=== PATIENT | male | born 1935 | race Caucasian/White ===

== ENCOUNTER 2017-04-14 11:45 | Emergency (ER) | payer MEDICARE ==
[~2017-04-14] VITALS: Ht 177.8 cm; Wt 103.0 kg
[~2017-04-14 11:45] MED LIST: ATEN-102 PO; CALA120T PO; COUM4TAB7 PO; DIGO0.12 PO; LAMO100 PO; OMEP20TA39 PO; TAMS0.4C67 PO; ZOCO40TA PO
[2017-04-14 11:51] VITALS: BP 143/67; PULSE 86; RESP 18; TEMP 98.2; O2SAT 95
[2017-04-14] MEDS ORDERED: WARF-20 PO (12:05)
[2017-04-14] MEDS ORDERED: TAMS0.4C4 PO (12:06)
[2017-04-14] MEDS ORDERED: VITA250T3 PO (12:06)
[2017-04-14] MEDS ORDERED: LANO0.12 PO (12:06)
[2017-04-14] MEDS ORDERED: LAMO100 PO (12:06)
[2017-04-14] MEDS ORDERED: ATEN50TA PO (12:06)
[2017-04-14] MEDS ORDERED: SIMV40TA PO (12:06)
[2017-04-14] MEDS ORDERED: CHOL1TAB42 PO (12:06)
[2017-04-14] MEDS ORDERED: VERA120T3 PO (12:06)
[2017-04-14] MEDS ORDERED: OMEP20TA93 PO (12:06)
--- NOTE | 2017-04-14 12:17 | PD ---
HPI Chief Complaint: Musculoskeletal Complaint Time Seen by Provider: 12:12 Travel History International Travel<30 days: No Contact w/Intl Traveler<30days: No Traveled to known affect area: No History of Present Illness HPI 81-year-old male here with right knee pain. He has a history of CVA with residual left-sided weakness. He reports that he was getting out of bed 3 days ago when he fell and twisted his right knee. He reports that it was a mechanical fall. He has had pain and swelling in his right knee since then. Pain is worse with ambulation, flexion. He has been applying ice but symptoms persist. He denies any other injuries and he has no other complaints at this time. PFSH Past Medical History Hx Anticoagulant Therapy: Yes Arthritis: No Asthma: No Atrial Fibrillation: Yes Blood Disorders: No Anxiety: No Depression: No Heart Rhythm Problems: No Cancer: Yes (BASAL AND MELANOMA) Cardiac Catheterization: Yes Cardiovascular Problems: Yes High Cholesterol: No Chemotherapy: No Chest Pain: No Congestive Heart Failure: No COPD: No Cerebrovascular Accident: Yes Diminished Hearing: No Endocrine: No Glaucoma: No Genitourinary: No Headaches: No Hypertension: Yes Immune Disorder: No Musculoskeletal: No Neurologic: Yes Psychiatric: No Reproductive: No Respiratory: Yes Immunizations Current: Yes Migraines: No Myocardial Infarction: No Radiation Therapy: No Seizures: Yes (/2WEEKS / 6-7 SEI) Sleep Apnea: Yes Tetanus Vaccination: Unknown Influenza Vaccination: No Past Surgical History Abdominal Surgery: Yes (hernia) AICD: No Arteriovenous Shunt: No Cardiac Surgery: No Ear Surgery: No Endocrine Surgery: No Eye Surgery: No Genitourinary Surgery: No Gynecologic Surgery: No Insulin Pump: No Joint Replacement: No Oral Surgery: No Pacemaker: No Thoracic Surgery: No Other Surgery: Yes (ANALI INGUINAL HERNIA, HEMRHOIDECTOMY) Social History Alcohol Use: No Tobacco Use: No Substance Use: No Allergies-Medications (Allergen,Severity, Reaction): Coded Allergies: No Known Allergies (Verified Adverse Reaction, Unknown, 04/14/17) Reported Meds & Prescriptions Reported Meds & Active Scripts Active Walker with Front Wheels (Device) 1 Mis Mis Ea .XX DIRECTED Reported Vitamin C (Ascorbic Acid) 250 Mg Tab 1,000 Mg PO DAILY Vitamin D-3 (Cholecalciferol) 2,000 Unit Tab 1 Tab PO DAILY Simvastatin 40 Mg Tab 40 Mg PO HS Tamsulosin (Tamsulosin HCl) 0.4 Mg Cap 0.4 Mg PO HS Omeprazole 20 Mg Tab 20 Mg PO DAILY Lanoxin (Digoxin) 125 Mcg Tablet 1 Tab PO DAILY Verapamil (Verapamil HCl) 120 Mg Tab 120 Mg PO DAILY Lamictal (Lamotrigine) 100 Mg Tab 100 Mg PO BID Atenolol 50 Mg Tab 50 Mg PO DAILY Warfarin 4 Mg Tab 4 Mg PO DAILY Review of Systems Except as stated in HPI: all other systems reviewed are Neg Physical Exam Narrative GENERAL: Well-nourished male in no acute distress SKIN: Warm and dry. HEAD: Atraumatic. Normocephalic. EYES: Pupils equal and round. No scleral icterus. No injection or drainage. ENT: No nasal bleeding or discharge. Mucous membranes pink and moist. NECK: Trachea midline. No JVD. CARDIOVASCULAR: Regular rate and rhythm. No murmur appreciated. RESPIRATORY: No accessory muscle use. Clear to auscultation. Breath sounds equal bilaterally. MUSCULOSKELETAL: Right knee effusion. Flexion is slightly limited in the right knee. There is pain with flexion and extension of the right knee. Generalized tenderness to palpation the right knee. Minor abrasion to the right elbow. NEUROLOGICAL: Awake and alert. No obvious cranial nerve deficits. Motor grossly within normal limits. Normal speech. Data Data Last Documented VS Vital Signs Date Time Temp Pulse Resp B/P (MAP) Pulse Ox O2 Delivery O2 Flow Rate FiO2 04/14/17 11:51 98.2 86 18 143/67 (92) 95 Orders Orders Knee, Complete (4vws) (04/14/17 ) Ed Discharge Order (04/14/17 13:13) MDM Medical Decision Making Medical Screen Exam Complete: Yes Emergency Medical Condition: Yes Medical Record Reviewed: Yes Differential Diagnosis Right knee sprain, ligamentous disruption, meniscal disruption, tibial plateau fracture, bursitis Narrative Course X-ray imaging of the right knee was obtained revealing no acute abnormalities. The patient will be given a prescription for a walker to help with ambulation. He is stable for discharge. Diagnosis Primary Impression: Right knee sprain Additional Instructions: Rest. Follow-up with primary care physician in 2 weeks for recheck. Return for any emergent medical conditions. Med/Other Pt SpecificInfo: Prescription(s) given Scripts Walker with Front Wheels (Walker with Front Wheels) 1 Mis Mis EA .XX DIRECTED, #1 0 Refills Prov: Joel Navarro MD 04/14/17 Disposition: 01 DISCHARGE HOME Condition: Stable Patrick Pradhan Apr 14, 2017 12:17
--- NOTE | 2017-04-14 13:09 | RADRPT ---
EXAM DATE/TIME: 04/14/2017 12:51 [facility] COMPARISON: No previous studies available for comparison. INDICATIONS : Right knee pain after falling 2 days ago. MEDICAL HISTORY : None. SURGICAL HISTORY : None. ENCOUNTER: Initial ACUITY: 2 days PAIN SCORE: 7/10 LOCATION: Right knee. FINDINGS: Four view examination of the right knee demonstrates no evidence of fracture or dislocation. Bony mi neralization is normal. The articular surfaces are intact. The suprapatellar soft tissues have a no rmal configuration. CONCLUSION: Unremarkable examination of the right knee. Pierre Mosquera MD on April 14, 2017 at 13:06 Board Certified Radiologist. This report was verified electronically.
[2017-04-14] MEDS ORDERED: WALKER WHEELS/F1 MIS (13:14)
== END 2017-04-14 13:17 | disposition home or self-care (01) ==
LOC: PHEFT 11:45
DX: S83.91XA Sprain of unspecified site of right knee, initial encounter (principal); I10 Essential (primary) hypertension; I48.91 Unspecified atrial fibrillation; I69.354 Hemiplegia and hemiparesis following cerebral infarction affecting left non-dominant side; W06.XXXA Fall from bed, initial encounter; X50.1XXA Overexertion from prolonged static or awkward postures, initial encounter; Z85.820 Personal history of malignant melanoma of skin; Z79.01 Long term (current) use of anticoagulants; Z79.899 Other long term (current) drug therapy
CPT/HCPCS: 73564; 99283